=== PATIENT | female | born 1995 | race African-American/Black ===

== ENCOUNTER 2023-03-19 15:37 | Emergency (ER) | payer MEDICAID ==
[~2023-03-19] VITALS: Ht 170.2 cm; Wt 97.5 kg
[2023-03-19 15:45] VITALS: BP 107/77; PULSE 78; RESP 18; TEMP 98.6; O2SAT 99
== END 2023-03-19 19:29 | disposition left against medical advice (07) ==
LOC: ER 15:37
DX: Z53.21 Procedure and treatment not carried out due to patient leaving prior to being seen by health care provider (principal)
CPT/HCPCS: 99281

== ENCOUNTER 2024-03-21 12:14 | Emergency (ER) | payer MEDICAID ==
[~2024-03-21] VITALS: Ht 175.3 cm; Wt 108.0 kg
[2024-03-21 12:39] VITALS: BP 120/81; PULSE 101; RESP 18; TEMP 98.2; O2SAT 97
[2024-03-21 13:16] LABS: BASOPHILS % 0.6 % (0.0-2.0); EOSINOPHILS % 5.7 % (0.0-5.0); HEMATOCRIT. 38.2 % (36.0-48.0); HEMOGLOBIN. 12.8 g/dL (12.0-16.0); LYMPHOCYTES % 23.3 % (20.0-50.0); MEAN CORPUSCULAR HEMOGLOBIN 31.9 pg (28.0-32.0); MEAN CORPUSCULAR HGB CONC 33.5 g/dL (31.0-37.0); MONOCYTES % 5.2 % (2.0-8.0); NEUTROPHILS % 65.2 % (40.0-76.0); PLATELET 336 x1000/uL (130-400); RED BLOOD CELL COUNT 4.02 mill/uL (4.2-5.4); RED CELL DISTRIBUTION WIDTH 14.1 % (11.6-14.6); WHITE BLOOD COUNT 6.6 x1000/uL (4.5-11.0)
[2024-03-21 13:36] LABS: HCG SCREEN NEGATIVE
[2024-03-21 13:40] LABS: CHLORIDE 106 mEq/L (98-107); SODIUM 139 mEq/L (136-145)
[2024-03-21 13:41] LABS: CALCIUM 9.5 mg/dL (8.7-10.4); CARBON DIOXIDE 28 mEq/L (21-32)
[2024-03-21 13:46] LABS: CREATININE 0.8 mg/dL (0.6-1.0); GLUCOSE 92 mg/dL (70-105); UREA NITROGEN BLOOD 7 mg/dL (9-23)
[2024-03-21 13:48] LABS: ALANINE AMINOTRANSFERASE 13 IU/L (10-49); ALBUMIN 4.5 g/dL (3.2-4.8); ASPARTATE AMINOTRANSFERASE 15 IU/L (<34); BILIRUBIN DIRECT 0.2 mg/dL (<=3.0); BILIRUBIN TOTAL 0.5 mg/dL (0.1-1.0)
[2024-03-21 13:49] LABS: PROTEIN TOTAL 7.7 g/dL (6.0-8.3)
== END 2024-03-21 17:37 | disposition home or self-care (01) ==
LOC: ER 12:14
DX: L81.9 Disorder of pigmentation, unspecified (principal); Z88.3 Allergy status to other anti-infective agents; Z98.890 Other specified postprocedural states
CPT/HCPCS: 36415; 80048; 80076; 84703; 85025; 99283